=== PATIENT | female | born 1985 | race Two or more races ===

== ENCOUNTER 2018-01-26 12:00 | Inpatient (IN) | payer OTHER ==
[~2018-01-26] VITALS: Ht 152.4 cm; Wt 3.2 kg
[2018-02-26] MEDS ORDERED: PRENATAL FORMU1 EAC1 PO (23:34)
[2018-02-26] MEDS ORDERED: VALTREX1000 MG PO (23:34)
== END 2018-03-03 13:50 | disposition home or self-care, planned readmission (81) | DRG 788 ==
LOC: OB/GYN 02-20 12:00 → LDR 02-26 16:54 → OB/GYN 02-26 16:54 → LDR 02-26 17:16 → OB/GYN 02-28 16:12
PROVIDERS: Obstetrics & Gynecology
PROC: 4A1HXCZ Monitoring of Products of Conception, Cardiac Rate, External Approach (ICD-10-PCS; 2018-02-28)
PROC: 10D00Z1 Extraction of Products of Conception, Low, Open Approach (ICD-10-PCS; principal; 2018-02-28 15:00)
DX: O76 Abnormality in fetal heart rate and rhythm complicating labor and delivery (principal); Z3A.40 40 weeks gestation of pregnancy; Z37.0 Single live birth

== ENCOUNTER 2018-02-16 12:29 | Outpatient (CLI) | payer OTHER | END 2018-02-16 13:38 | disposition home or self-care (01) | LOC: NST 12:29 | DX: Z34.83 Encounter for supervision of other normal pregnancy, third trimester (principal) ==

== ENCOUNTER 2018-02-20 12:26 | Outpatient (CLI) | payer OTHER | END 2018-02-20 13:15 | disposition home or self-care (01) | LOC: NST 12:26 | DX: O48.0 Post-term pregnancy (principal); Z34.83 Encounter for supervision of other normal pregnancy, third trimester ==

== ENCOUNTER 2018-02-23 12:50 | Outpatient (CLI) | payer OTHER | END 2018-02-23 13:41 | disposition home or self-care (01) | LOC: NST 12:50 | DX: O48.0 Post-term pregnancy (principal); Z34.83 Encounter for supervision of other normal pregnancy, third trimester ==

== ENCOUNTER 2018-02-26 12:44 | Outpatient (CLI) | payer OTHER ==
[2018-02-26] MEDS ORDERED: VALTREX1000 MG PO (23:34)
[2018-02-26] MEDS ORDERED: PRENATAL FORMU1 EAC1 PO (23:34)
== END 2018-02-26 17:18 | disposition home or self-care (01) ==
LOC: NST 12:44
DX: O48.0 Post-term pregnancy (principal); Z34.83 Encounter for supervision of other normal pregnancy, third trimester

== ENCOUNTER 2018-03-08 15:28 | Outpatient (CLI) | payer OTHER ==
[~2018-03-08 15:28] MED LIST: PRENATAL FORMU1 EAC1 PO; VALTREX1000 MG PO
== END 2018-03-08 15:40 | disposition home or self-care (01) ==
LOC: NUCLEAR 15:28
DX: I80.293 Phlebitis and thrombophlebitis of other deep vessels of lower extremity, bilateral (principal); I80.03 Phlebitis and thrombophlebitis of superficial vessels of lower extremities, bilateral

== ENCOUNTER 2019-08-19 10:24 | Inpatient (IN) | payer OTHER ==
[~2019-08-19] VITALS: Ht 152.4 cm; Wt 2.7 kg
[2019-08-26] MEDS ORDERED: INTEGRA F CAPS1 EACH PO (11:34)
[2019-09-04] MEDS ORDERED: VALACYCLOVIR500 MG (09:55)
[2019-09-06] MEDS ORDERED: OXYC1TAB9 PO (07:50)
[2019-09-06] MEDS ORDERED: KETO10TA2 PO (07:50)
== END 2019-09-06 14:50 | disposition home or self-care (01) | DRG 788 ==
LOC: O/R 09-04 06:00 → OB/GYN 09-04 07:00
PROVIDERS: ADMIT Obstetrics & Gynecology Maternal & Fetal Medicine
PROC: 4A1HXFZ Monitoring of Products of Conception, Cardiac Rhythm, External Approach (ICD-10-PCS; 2019-09-04)
PROC: 3E033VJ Introduction of Other Hormone into Peripheral Vein, Percutaneous Approach (ICD-10-PCS; 2019-09-04)
PROC: 10D00Z1 Extraction of Products of Conception, Low, Open Approach (ICD-10-PCS; principal; 2019-09-04 07:00)
DX: O34.211 Maternal care for low transverse scar from previous cesarean delivery (principal); Z3A.39 39 weeks gestation of pregnancy; Z37.0 Single live birth